=== PATIENT | female | born 1955 | race Caucasian/White ===

== ENCOUNTER 2021-10-26 10:39 | Outpatient (CLI) | payer MEDICARE, SELFPAY ==
[2021-10-26 10:50] VITALS: BMI 37.5
[2021-10-26 10:58] VITALS: BP 153/79; PULSE 65; RESP 18; TEMP 36.5; O2SAT 97
[2021-10-26 12:08] VITALS: BP 136/75; PULSE 57; RESP 16; TEMP 36.5; O2SAT 97
[2021-10-26 13:07] VITALS: BP 139/82; PULSE 18; RESP 67; TEMP 36.5; O2SAT 97
[2021-10-26 13:38] VITALS: BP 139/82; PULSE 67; RESP 18; TEMP 36.5; O2SAT 97
== END 2021-10-26 10:40 | disposition home or self-care (01) ==
LOC: OPS 10:47
PROVIDERS: PCP Nurse Practitioner Family; Visit Provider Nurse Practitioner Family
DX: U07.1 COVID-19 (principal)
CPT/HCPCS: 96365